=== PATIENT | female | born 1950 | race Caucasian/White ===

== ENCOUNTER 2022-01-31 15:00 | Outpatient (CLI) | payer MEDICARE, BC ==
[2022-01-31 16:47] LABS: Hemoglobin 12.3 g/dL (12.0-15.5); Mean Corpuscular HGB CONC 32.9 g/dL (32.0-36.0); Mean Corpuscular Hemoglobin 29.6 pg (27.0-33.0); Mean Corpuscular Volume 90.1 fl (81.6-98.3); Mean Platelet Volume 11.5 fl (7.4-10.4); Platelet Count 281 10x3/uL (150-450); RBC Distribution Width 13.6 % (11.5-14.5); Red Blood Cell (RBC) Count 4.15 10x6/uL (3.90-5.03); White Blood Cell (WBC) Count 10.3 10x3/uL (3.5-10.5)
[2022-01-31 17:04] LABS: Anion Gap 12 mmol/L (10-20); BUN (Urea Nitrogen) 23 mg/dL (9.8-20.1); Calc. Creatinine Clearance 0 mL/min (70-130); Calcium 9.3 mg/dL (7.8-10.44); Carbon Dioxide 30 mmol/L (23-31); Chloride 99 mmol/L (98-107); Glucose 90 mg/dL (83-110); Potassium 4.2 mmol/L (3.5-5.1); Sodium 137 mmol/L (136-145)
[2022-01-31 17:49] LABS: Estimated GFR 72
== END 2022-01-31 15:01 | disposition home or self-care (01) ==
LOC: CSHLAB 15:00
PROVIDERS: ATTEND Student in an Organized Health Care Education/Training Program
DX: Z01.812 Encounter for preprocedural laboratory examination (principal); Z20.822 Contact with and (suspected) exposure to COVID-19
CPT/HCPCS: 80048; 85027; 86850; 86900; 86901; 87811

== ENCOUNTER 2022-02-05 07:55 | Day surgery (SDC) | payer MEDICARE, BC ==
[2022-01-31 16:47] LABS: Hemoglobin 12.3 g/dL (12.0-15.5); Mean Corpuscular HGB CONC 32.9 g/dL (32.0-36.0); Mean Corpuscular Hemoglobin 29.6 pg (27.0-33.0); Mean Corpuscular Volume 90.1 fl (81.6-98.3); Mean Platelet Volume 11.5 fl (7.4-10.4); Platelet Count 281 10x3/uL (150-450); RBC Distribution Width 13.6 % (11.5-14.5); Red Blood Cell (RBC) Count 4.15 10x6/uL (3.90-5.03); White Blood Cell (WBC) Count 10.3 10x3/uL (3.5-10.5)
[2022-01-31 17:04] LABS: Anion Gap 12 mmol/L (10-20); BUN (Urea Nitrogen) 23 mg/dL (9.8-20.1); Calc. Creatinine Clearance 0 mL/min (70-130); Calcium 9.3 mg/dL (7.8-10.44); Carbon Dioxide 30 mmol/L (23-31); Chloride 99 mmol/L (98-107); Glucose 90 mg/dL (83-110); Potassium 4.2 mmol/L (3.5-5.1); Sodium 137 mmol/L (136-145)
[2022-01-31 17:49] LABS: Estimated GFR 72
[2022-02-01 13:01] VITALS: BMI 29.9
[2022-02-05] MEDS ORDERED: CeleCOXIB 100 MG CAP ONE (08:05)
[2022-02-05] MEDS ORDERED: PROPOFOL 20 ML ONE (09:37)
[2022-02-05] MEDS ORDERED: Lidocaine 1% PF 5 ML VIAL ONE (09:37)
[2022-02-05] MEDS ORDERED: Fentanyl 100 MCG/2 ML VIAL ONE ×2 (09:37→11:14)
[2022-02-05] MEDS ORDERED: Ondansetron PF 4 MG/2 ML Vial ONE (11:27)
[2022-02-05] MEDS ORDERED: Dexamethasone 4 mg/ml Vial ONE (11:27)
[2022-02-05] MEDS ORDERED: Ketorolac Tromethamine 30 MG/ML VIAL ONE (11:46)
== END 2022-02-05 13:15 | disposition home or self-care (01) ==
LOC: CSHSDC 07:55
PROVIDERS: ATTEND Student in an Organized Health Care Education/Training Program
PROC: 0UDB8ZX Extraction of Endometrium, Via Natural or Artificial Opening Endoscopic, Diagnostic (ICD-10-PCS; principal; 2022-02-05)
DX: N85.8 Other specified noninflammatory disorders of uterus (principal); N95.0 Postmenopausal bleeding; I10 Essential (primary) hypertension; E78.5 Hyperlipidemia, unspecified; M19.90 Unspecified osteoarthritis, unspecified site; Z79.82 Long term (current) use of aspirin; Z79.899 Other long term (current) drug therapy; Z20.822 Contact with and (suspected) exposure to COVID-19; Z90.49 Acquired absence of other specified parts of digestive tract; Z98.890 Other specified postprocedural states
CPT/HCPCS: 80048; 85027; 86850; 86900; 86901; 87811; 88305; J1100; J1885; J2405; J2704; J3010

== ENCOUNTER 2023-01-08 09:51 | Outpatient (CLI) | payer MEDICARE, BC | END 2023-01-08 09:52 | disposition home or self-care (01) | LOC: CSHMAMMO 09:51 | PROVIDERS: ATTEND Internal Medicine | DX: Z13.820 Encounter for screening for osteoporosis (principal); M85.852 Other specified disorders of bone density and structure, left thigh | CPT/HCPCS: 77080 ==